=== PATIENT | male | born 1955 | race Caucasian/White ===

== ENCOUNTER 2017-03-12 10:51 | Day surgery (SDC) | payer OTHER ==
[2017-03-12] VITALS (17 sets, daily range): BP systolic 74–142; BP diastolic 57–83; PULSE 80–89; RESP 8–22; Ht 167.6 cm; Wt 56.3 kg
[~2017-03-12] VITALS: Ht 167.6 cm; Wt 56.3 kg
[~2017-03-12 10:51] MED LIST: CEFAZOLIN 2 GM/50 ML (PMX) 50 ML IVPB SCH; NEOSTIGMINE 3 MG/3 ML SYRINGE ONE; SOD CHLORIDE 0.9% 1,000 ML IV SCH; SUCCINYLCHOLINE CHLORIDE 100 MG/5 ML SYG IV ONE
[2017-03-12] MEDS ORDERED: METF1000 PO (11:43)
[2017-03-12] MEDS ORDERED: OXYB5TAB7 PO (11:44)
[2017-03-12] MEDS ORDERED: FER325 PO (11:44)
[2017-03-12] MEDS ORDERED: FOLI-49 PO (11:45)
[2017-03-12] MEDS ORDERED: FURO20TA3 PO (11:45)
[2017-03-12] MEDS ORDERED: SIMV10TA PO (11:46)
[2017-03-12] MEDS ORDERED: GLIM4TAB PO (11:46)
[2017-03-12] MEDS ORDERED: LOSA50TA6 PO (11:47)
[2017-03-12 12:22] LABS: EOSINOPHILS % 1.3 % (0.0-7.0); HEMATOCRIT 24.5 % (42.0-52.0); HEMOGLOBIN 8.2 g/dl (14.0-18.0); LYMPHOCYTES % 32.9 % (15.0-51.0); MEAN CORPUSCULAR HEMOGLOBIN 29.3 pg (29.0-33.0); MEAN CORPUSCULAR HGB CONC 33.5 g/dl (32.0-37.0); MEAN CORPUSCULAR VOLUME 87.5 fl (82.0-101.0); MONOCYTE # 0.3 10^3/ul (0.3-0.9); MONOCYTES % 9.1 % (0.0-11.0); NEUTROPHIL # 1.7 10^3/ul (1.6-7.5); NEUTROPHILS % 55.7 % (39.0-77.0); PLATELET COUNT 210 10^3/UL (140-415); RED CELL DISTRIBUTION WIDTH 13.8 % (11.5-14.5)
[2017-03-12 12:28] LABS: HOLD TRANSMISSIONS 1
[2017-03-12 12:32] LABS: WHITE BLOOD COUNT 3.1 10^3/ul (4.8-10.8)
[2017-03-12 12:44] LABS: INR 0.97; PARTIAL THROMBOPLASTIN TIME 28.2 Sec (25.0-35.0); PROTIME 12.9 Sec (12.2-14.2)
--- NOTE | 2017-03-12 12:51 | RADRPT ---
PROCEDURE: XR Chest. CLINICAL INDICATION: Preoperative TECHNIQUE: Single frontal view of the chest was obtained COMPARISON: None FINDINGS: No pleural effusion or pneumothorax. No consolidation. Unremarkable cardiac silhouette. Enlarged aortic arch and tortuous thoracic aorta suggestive of rehabilitator juan systemic hypertension. No acute osseous abnormality. Post-traumatic changes are noted in the distal right clavicle. IMPRESSION: No acute cardiopulmonary disease. RPTAT: EE Physician Pete Date Time Electronically viewed and signed by Germain Duffy Physician on 03/12/2017 12:50 GC/
[2017-03-12] MEDS ORDERED: ROCURONIUM 50 MG INJ ONE (15:53)
[2017-03-12] MEDS ORDERED: MIDAZOLAM 1 MG/ML 2 ML INJ ONE (15:53)
[2017-03-12] MEDS ORDERED: LIDOCAINE 2% (SDV) 5 ML INJ ONE (15:53)
[2017-03-12] MEDS ORDERED: PROPOFOL 20 ML ONE (15:53)
[2017-03-12] MEDS ORDERED: BUPIVACAINE 0.25% (MPF) 30 ML INJ ONE (15:54)
[2017-03-12] MEDS ORDERED: POLYMYXIN/BACITRACIN 1L IRRIG ONE (15:56)
[2017-03-12] MEDS ORDERED: FENTAnyl 50 MCG/ML VIAL ONE (16:09)
[2017-03-12] MEDS ORDERED: CEFAZOLIN 1 GM INJ ONE (16:20)
[2017-03-12] MEDS ORDERED: ONDANSETRON 4 MG INJ ONE (16:20)
[2017-03-12] MEDS ORDERED: PHENYLephrine (100 MCG/ML) 5ML SYG ONE (16:41)
[2017-03-12] MEDS ORDERED: EPHEDrine SULFATE 50 MG/5 ML SYG ONE (16:55)
[2017-03-12] MEDS ORDERED: GLYCOPYRROLATE 0.4 MG INJ ONE (16:55)
[2017-03-12] MEDS ORDERED: LABETALOL HCL 20MG INJ ONE (16:59)
[2017-03-12] MEDS ORDERED: OXYCODONE/ACETAMINOPHEN (5/325) TAB PO PRN (17:00)
[2017-03-12] MEDS ORDERED: HYDROCODONE/APAP (5/325) TAB PO ONE (17:00)
[2017-03-12] MEDS ORDERED: hydrALAzine 20 MG INJ IV PRN (17:00)
[2017-03-12] MEDS ORDERED: DIPHENHYDRAMINE 50 MG INJ IV PRN (17:00)
[2017-03-12] MEDS ORDERED: ONDANSETRON 4 MG INJ IV PRN (17:00)
[2017-03-12] MEDS ORDERED: INSULIN ASPART [NOVOLOG] 3 ML PEN SC ONE (17:00)
[2017-03-12] MEDS ORDERED: LABETALOL HCL 20MG INJ IV PRN (17:00)
[2017-03-12] MEDS ORDERED: MEPERIDINE 25 MG INJ IV PRN (17:00)
[2017-03-12] MEDS ORDERED: PROCHLORPERAZINE 10 MG INJ IV PRN (17:00)
[2017-03-12] MEDS ORDERED: FENTAnyl 50 MCG/ML VIAL IV PRN (17:00)
--- NOTE | 2017-03-12 17:00 | OPR ---
Date/Time of Note Date/Time of Note DATE: 03/12/17 TIME: 16:57 Operative Report Procedure Date: Mar 12, 2017 Preoperative Diagnosis left inguinal hernia Postoperative Diagnosis same Operation/Procedure Performed 1. open left inguinal hernia repair with medium ultrapro hernia system mesh 2. therapeutic injection of subcutaneous local anesthesia Surgeon see signature line Summer Clerk none Anesthesia Type: general Estimated Blood Loss: minimal Transfusion none Specimen none Grafts/Implants none Complications none Pt Condition Post Procedure: stable Indications This is a 51-year-old male with a left inguinal hernia. He required surgical repair. Risks alternatives benefits and personnel were discussed the patient. Patient expressed understanding consents to the operation. Procedure Description Patient is taken to the OR and prepped and draped in usual sterile fashion. Surgical timeout was performed. IV antibiotics were given. Left inguinal oblique incision is made with a 10 blade. Dissection cautery was carried down through the external oblique fascia. There is really fascia is opened with a 15 blade. This incision is extended medially inferiorly lateral superiorly with Metzenbaum scissors. Cord structures were carefully dissected out and encircled with a Ellen drain. A large indirect hernia that is incarcerated is reduced manually. This portion of the ultrapure hernia system mesh is secured in place in this location with a running 0 Prolene from the pubic tubercle along the shelving of the inguinal ligament. Superiorly the mesh is secured to the internal oblique with interrupted 3-0 Vicryl. Onlay mesh is secured in a similar fashion with a running 0 Prolene from the pubic tubercle along the shelving of the inguinal ligament. Strep secured to reapproximate around the cord structures to re-create the inguinal ring with interrupted 0 Prolene. The onlay mesh is secured to the internal oblique with interrupted 3- 0 Vicryl. External oblique fascia is closed a running 3-0 Vicryl. Isael's fascia is closed with interrupted 3-0 Vicryl. Skin is closed using skin alejo. Therapeutic subcutaneous local anesthesia is injected throughout the incision site. Dry dressings were applied. Stefany ROSARIO Mar 12, 2017 17:00
[2017-03-12] MEDS: HYDROmorphONE (0.2 MG/ML) 10ML SYG IV PRN ×3 (17:13→17:54)
--- NOTE | 2017-03-13 16:05 | RADRPT ---
Vent Rate: 59 bpm RR Interval: 0 msec AR Interval: 158 msec QRS Duration: 84 msec QT Interval: 410 msec QTC Interval: 405 msec P-R-T [place]: 77 - 67 - 74 degrees Sinus bradycardia with sinus arrhythmia Otherwise normal ECG Electronically Signed By: Jose Alberto Wilde [id number]
== END 2017-03-12 19:57 | disposition home or self-care (01) ==
LOC: SDS 10:51
PROVIDERS: ATTEND Surgery
DX: K40.90 Unilateral inguinal hernia, without obstruction or gangrene, not specified as recurrent (principal); I10 Essential (primary) hypertension; E11.9 Type 2 diabetes mellitus without complications; K21.9 Gastro-esophageal reflux disease without esophagitis; D64.9 Anemia, unspecified; K74.60 Unspecified cirrhosis of liver
CPT/HCPCS: 49505; 71010; 82962; 85025; 85610; 85730; 86850; 86900; 86901; 93005; C1781; J0690; J1170; J1815; J2250; J2370; J2405; J2710; J3010; Z7512; Z7610